=== PATIENT | male | born 1955 | race Caucasian/White ===

== ENCOUNTER → 2017-04-14 10:33 | Outpatient (CLI) | payer BC, SELFPAY ==
--- NOTE | 2017-04-14 10:39 | RAD_ITS ---
STUDY: X-RAY CHEST REASON FOR EXAM: Male, 61 years old. August, persistent cough TECHNIQUE: PA and lateral views of the chest. COMPARISON: PA and lateral chest x-ray February 11, 2016. FINDINGS: There is hyperinflation of the lungs consistent with chronic obstructive lung disease (COPD). No acute infiltrate. There is no demonstrated pleural abnormality. Normal size heart. Normal mediastinum and keisha. Normal visualized pulmonary arteries. Normal visualized aortic arch and descending thoracic aorta. Normal visualized thoracic spine. Normal visualized ribs, clavicles, and shoulders. There is no demonstrated abnormality of the visualized soft tissue structures of the upper abdomen. RAD/Chest PA and Lateral IMPRESSION: Hyperexpanded, consistent with COPD. No acute infiltrate or CHF. Electronically Signed: Butch Lawton MD at 17:59 EST , Service support ,
== END ==
PROVIDERS: Family Provider Internal Medicine; PCP Internal Medicine; Visit Provider Internal Medicine
DX: R09.89 Other specified symptoms and signs involving the circulatory and respiratory systems (principal)
CPT/HCPCS: 71046

== ENCOUNTER → 2017-05-05 11:33 | Outpatient (CLI) | payer BC, SELFPAY ==
--- NOTE | 2017-05-05 11:35 | CT_ITS ---
STUDY: CTA CHEST REASON FOR EXAM: Male, 61 years old. Shortness of breath. Abnormal lung sounds. Hypertension and previous smoking tobacco abuse. Low oxygen sats in office. Check for pulmonary embolus. RADIATION DOSAGE (If Supplied By Facility): CTDIvol = ( 6.91 ) mGy, DLP = ( 307.31 ) mGycm TECHNIQUE: The examination was performed with the intravenous administration of 100 ml of Isovue 370 contrast material. Post-processing of the angiographic images was performed, with multiplanar reformation and 3D reconstruction. Individualized dose optimization techniques were used for this CT. COMPARISON: None available. FINDINGS: Normal enhancement of the main pulmonary artery and right and left pulmonary arteries. Normal enhancement of the bilateral peripheral pulmonary arteries. There is no demonstrated pulmonary embolism. Normal thoracic aorta and visualized great vessels without aortic dissection/transection or aneurysm identified. Normal heart and pericardium. Normal mediastinum. Normal hilar regions noted with right hilar round soft tissue attenuated area seen, likely a lymph node approximate 1.5 x 1.6 cm which is moderately enlarged but does not meet CT criteria for adenopathy. Normal visualized trachea and bronchi. The lungs are well expanded and show minimal right greater than left apical scarring without adjacent bony destruction/erosion identified. Lungs appear hyperexpanded and demonstrate severe predominantly upper lobe centrilobular emphysema within walled cystic changes. Minimal left upper lobe anterior segment groundglass opacity seen in the subpleural region, nonspecific but may represent minimal scarring. Left upper lobe apical posterior possible scar noncalcified pulmonary nodule is seen, approximate 0.6 x 0.8 cm image #227/25 series #2. Minimal subpleural scarring suggested left upper lobe anterior segment image #140/25 series #2. Moderate predominantly bibasal posterior medial peribronchial thickening noted, nonspecific but can be seen in bronchitis. Normal chest wall structures. Severe lower cervical spine and moderate upper to mid thoracic spine degenerative changes are noted as well as mild S-shaped thoracic scoliosis. Normal visualized upper abdomen. No large adrenal identified. CT/CTA Chest W/WO Contrast IMPRESSION: No CTA findings demonstrating a pulmonary embolism or arterial dissection. Severe centrilobular emphysema as described. Tiny left upper lobe apical posterior segment noncalcified pulmonary nodule or scar noted 0.6 x 0.8 cm as described. Please see Fleischner Society guidelines below for recommendation. Moderate predominantly bibasal posterior medial peribronchial thickening, nonspecific but can be seen in bronchitis. Clinical correlation recommended. FLE[employer]CH[employer] SOC[employer]ETY GUIDELINES STATEMENT CT Follow-Up of Small Pulmonary Nodules Nodule size is average of length and width. Nodule size. Low risk patient. Non smoking history. <4mm No follow-up needed (risk of malignancy <1%) 4-6mm Follow up CT at 12 months, if unchanged, no further imaging needed. 6-8mm Initial follow up at 6-12 month, then at 18-24 months if no changes. > 8mm Follow-up CT at 3, 9, and 24 months, dynamic contrast CT, PET and /or biopsy. Nodule size. High risk patients. Smoking history. <4mm Follow-up 12 months: if unchanged, no further follow-up. 4-6mm Initial follow-up at 6-12 months,then at 18-24 months if no change. Electronically Signed: Gucci Francois, at 15:08 EDT Tel , Service support ,
[2017-05-05 11:53] LABS: Bacteria 0 SEEN /hpf (None Seen); Mucous, Urine 0 SEEN /hpf (<or=2+); Squamous Epithelial Cells - UA 0 SEEN /hpf (0-5); White Blood Cells 0 SEEN /hpf (0-5)
[2017-05-05 12:09] LABS: Absolute Lymphocyte Count 1.21 X10^3/ul (0.83-4.51); Absolute Neutrophil Count 6.3 X10^3/uL (2.0-7.7); Basophil# 0.05 X10^3/uL; Basophil% 0.5 % (0-1); Eosinophil# 1.12 X10^3/uL; Eosinophils% 12.1 % (0-5); Hematocrit 44.8 % (40-54); Hemoglobin 15.7 g/dl (13.0-16.5); Lymphocyte # 1.21 X10^3/ul (4.0); Lymphocyte % 13.1 % (19-41); Mean Corpuscular Hgb 32.7 pg (27.0-32.0); Mean Corpuscular Volume 93.3 fL (80-94); Mean Platelet Vol. 9.2 fl (6.2-12.0); Monocyte# 0.57 X10^3/uL; Monocyte% 6.1 % (0-10); Platelet Count 248 K/mm3 (150-450); RBC Distribution Width CV 12.2 % (11.6-14.6); RBC Distribution Width SD 41.4 fl (35.1-43.9); White Blood Count 9.3 K/mm3 (4.4-11.0)
[2017-05-05 12:10] LABS: Color, Urine Yellow (Yellow); Glucose, Dipstick Normal (Normal); Ketone-Dipstick 5 mg/dl (Negative); Leukocyte Esterase-Dipstick Negative /ul (Negative); Nitrite-Dipstick Negative (Negative); Occult Blood-Urine Negative /ul (Negative); Protein-Dipstick Negative (Negative); Urine Bilirubin Dipstick Negative (Negative); Urine Clarity Clear (Clear); Urine Urobilinogen Normal (Normal)
[2017-05-05 12:15] LABS: POSITIVE COUNT NO; POSITIVE DIFFERENTIAL NO; POSITIVE MORPHOLOGY NO
[2017-05-05 12:22] LABS: Red Blood Cells-Urine 0-5 SEEN /hpf (0-5)
[2017-05-05 12:46] LABS: Microalbumin,Random Urine < 5.0 mg/L (NO RANGE EST.)
[2017-05-05 13:00] LABS: ALB/GLOB Ratio 1.3 RATIO (0.9-2.4); AST(SGOT) 25 U/L (15-37); Alanine Aminotransfer ALT/SGPT 31 U/L (16-61); Albumin, Serum 4.4 g/dL (3.2-5.0); Alkaline Phosphatase 78 U/L (45-117); Anion Gap 7 (5-15); BUN 15 mg/dL (7-18); BUN/Creat Ratio 15.5 RATIO (10-20); Calcium,Total 9.1 mg/dL (8.5-10.1); Chloride 96 mmol/L (98-107); Cholesterol 147 mg/dL (200); Creatinine, Serum 0.96 mg/dL (0.70-1.30); EST Glomerular Filtration Rate 84 mL/min (>60); Est Glom Filt Rate - Afr Amer 102 mL/min (>60); Globulin 3.5 g/dL (2.2-4.2); Glucose 104 mg/dL (74-106); High Density Lipoprotein 74 mg/dL; Potassium 4.2 mmol/L (3.5-5.1); Protein, Total 7.9 g/dL (6.4-8.2); Sodium Level 131 mmol/L (136-145); Thyroid Stim Hormone (TSH) 1.55 uIU/mL (0.358-3.74); Triglycerides 68 mg/dL; Very Low Density Lipoprotein 14 mg/dL (5-40)
[2017-05-06 10:42] LABS: Vitamin D,25 Hydroxy 39.7 ng/mL (29.95-100.01)
[2017-05-09 06:48] LABS: Bilirubin, Direct 0.38 mg/dL (0.00-0.30)
== END ==
PROVIDERS: Family Provider Internal Medicine; PCP Internal Medicine; Visit Provider Internal Medicine
DX: R09.89 Other specified symptoms and signs involving the circulatory and respiratory systems (principal); I10 Essential (primary) hypertension; E55.9 Vitamin D deficiency, unspecified; E78.5 Hyperlipidemia, unspecified; R73.02 Impaired glucose tolerance (oral); R17 Unspecified jaundice
CPT/HCPCS: 36415; 71275; 80053; 80061; 81001; 82043; 82248; 82306; 82570; 84443; 85025; Q9967

== ENCOUNTER → 2017-05-26 06:52 | Outpatient (CLI) | payer BC, SELFPAY ==
--- NOTE | 2017-05-26 13:50 | PFTCOMP_ITS ---
COMPLETE PULMONARY FUNCTION TEST INTERPRETATION Brief HPI: Patient is a 61 year old male, currently under the care of myself, who presents to [facility] for complete pulmonary function tests secondary to diagnosis of COPD. Respiratory therapist reports good effort and reproducible results. Interpretation: Forced expiration spirometry shows a mild large airways obstructive ventilatory defect with an FEV1 of 103% predicted. There is no significant bronchodilator response by ATS criteria. Spirograms are of good quality and plateau slowly, indicating slowly emptying areas of the lungs. The respiratory flow volume loop shows decreased expiratory flow rates at high lung volumes consistent with small airways obstruction. Lung volumes by body plethysmography show an elevated total lung capacity at 8.78 L, 137% predicted. All other lung volumes are increased symmetrically. Diffusion capacity by carbon monoxide is normal at 108% predicted. The airway resistance is elevated. Compared to previous pulmonary function tests from 01/02/2013, there has been a significant worsening air-trapping. Impression: Irreversible mild large airways obstructive ventilatory defect resulting in hyperinflation and consistent with chronic bronchitis.
== END ==
PROVIDERS: Family Provider Internal Medicine; PCP Internal Medicine; Visit Provider Internal Medicine Critical Care Medicine
DX: J44.1 Chronic obstructive pulmonary disease with (acute) exacerbation (principal)
CPT/HCPCS: 94060; 94726; 94729

== ENCOUNTER → 2017-08-15 07:58 | Outpatient (CLI) | payer BC, SELFPAY ==
--- NOTE | 2017-08-15 07:59 | CT_ITS ---
STUDY: CT CHEST WITHOUT CONTRAST REASON FOR EXAM: Male, 62 years old. Lung nodule for 3 month follow-up. RADIATION DOSAGE (If Supplied By Facility): CTDIvol = ( 8.70 ) mGy, DLP = ( 354.55 ) mGycm TECHNIQUE: Transaxial imaging was performed without the administration of intravenous contrast material. Individualized dose optimization techniques were used for this CT. COMPARISON: May 05, 2017. September 24, 2013. FINDINGS: Centrilobular emphysematous changes noted previously. No focal infiltrates or effusions. No pneumothorax. Previously noted small left apical lung nodule versus scar in no longer present. Normal heart and pericardium. Normal mediastinum. Normal hilar regions. Normal unenhanced pulmonary arteries. Normal aorta arch and descending thoracic aorta. Normal osseous structures. There is no demonstrated abnormality of the visualized upper abdomen. CT/Chest without Contrast IMPRESSION: No acute findings in the chest. COPD. Previously noted small left apical lung nodule or focal area of scar is no longer present. Electronically Signed: José Luis Krishnan MD at 5:11 EDT , Service support ,
== END ==
PROVIDERS: Family Provider Internal Medicine; PCP Internal Medicine; Visit Provider Internal Medicine Critical Care Medicine
DX: R91.1 Solitary pulmonary nodule (principal)
CPT/HCPCS: 71250

== ENCOUNTER → 2018-02-08 09:51 | Outpatient (CLI) | payer BC, SELFPAY ==
--- NOTE | 2018-02-08 09:54 | RAD_ITS ---
STUDY: X-RAY CHEST REASON FOR EXAM: Male, 62 years old. Acute exacerbation of asthma. Shortness of breath. TECHNIQUE: PA and lateral views of the chest. COMPARISON: Comparison is made with prior study dated April 14, 2017. FINDINGS: Hyperinflation. Scattered calcified granulomas. No infiltration is seen. There is no demonstrated pleural abnormality. Normal size heart. Normal mediastinum and keisha. Normal visualized pulmonary arteries. Normal visualized aortic arch and descending thoracic aorta. Normal visualized thoracic spine. Normal visualized ribs, clavicles, and shoulders. There is no demonstrated abnormality of the visualized soft tissue structures of the upper abdomen. RAD/Chest PA and Lateral IMPRESSION: Hyperinflation. No acute abnormality is seen. Electronically Signed: Darrick Dueñas MD at 10:30 EST Tel [phone], Service support ,
== END ==
PROVIDERS: Family Provider Internal Medicine; PCP Internal Medicine; Referring Provider Nurse Practitioner; Visit Provider Nurse Practitioner
DX: J45.901 Unspecified asthma with (acute) exacerbation (principal); R09.89 Other specified symptoms and signs involving the circulatory and respiratory systems
CPT/HCPCS: 71046; 87807

== ENCOUNTER 2018-03-13 11:29 | Emergency (ER) | payer BC, SELFPAY ==
[2018-03-13 11:31] VITALS: BP 123/84; PULSE 95; RESP 17; TEMP 36.7; O2SAT 95; BMI 22.0
--- NOTE | 2018-03-13 13:24 | EKG12_ITS ---
Test Reason : SOB Blood Pressure : / mmHG Vent. Rate : 109 BPM Atrial Rate : 109 BPM P-R Int : 158 ms QRS Dur : 092 ms QT Int : 330 ms P-R-T Axes : 085 089 077 degrees QTc Int : 444 ms Sinus tachycardia Right atrial enlargement Cannot rule out Anterior infarct , age undetermined Abnormal ECG Confirmed by CHAS BERGER, MONET ([id number]), social media editor WAGNER GRAVES ([id number]) on 03/15/2018 1:56:14 PM Referred By: JAZMYN Confirmed By:MONET DOHERTY MD
--- NOTE | 2018-03-13 13:36 | NURSING ---
NO OLD EKGS
[2018-03-13 14:49] LABS: Absolute Lymphocyte Count 0.82 X10^3/ul (0.83-4.51); Absolute Neutrophil Count 5.8 X10^3/uL (2.0-7.7); Basophil# 0.03 X10^3/uL; Basophil% 0.4 % (0-1); Eosinophil# 0.55 X10^3/uL; Eosinophils% 6.9 % (0-5); Hematocrit 43.6 % (40-54); Hemoglobin 14.9 g/dl (13.0-16.5); Lymphocyte # 0.82 X10^3/ul (4.0); Lymphocyte % 10.3 % (19-41); Mean Corp Hgb Conc 34.2 g/gl (32-36); Mean Corpuscular Hgb 32.2 pg (27.0-32.0); Mean Corpuscular Volume 94.2 fL (80-94); Monocyte# 0.74 X10^3/uL; Monocyte% 9.3 % (0-10); Neutrophil # 5.77 X10^3/uL (2.7-7.7); Neutrophil % 72.8 % (47-70); POSITIVE COUNT NO; POSITIVE DIFFERENTIAL NO; POSITIVE MORPHOLOGY NO; Platelet Count 242 K/mm3 (150-450); RBC Distribution Width CV 12.1 % (11.6-14.6); RBC Distribution Width SD 41.1 fl (35.1-43.9); Red Blood Count 4.63 M/mm3 (4.6-6.2); White Blood Count 7.9 K/mm3 (4.4-11.0)
--- NOTE | 2018-03-13 14:50 | RAD_ITS ---
STUDY: X-RAY CHEST REASON FOR EXAM: Male, 62 years old. Dyspnea/shortness of breath. TECHNIQUE: PA and lateral views of the chest. COMPARISON: Comparison is made with prior study dated February 08, 2018. FINDINGS: EKG electrodes are seen. Hyperinflation. Scattered calcified granulomas. There is no demonstrated pleural abnormality. Normal size heart. Normal mediastinum and keisha. Normal visualized pulmonary arteries. Normal visualized aortic arch and descending thoracic aorta. There is demineralization of the osseous structures. Normal visualized ribs, clavicles, and shoulders. There is no demonstrated abnormality of the visualized soft tissue structures of the upper abdomen. RAD/Chest PA and Lateral IMPRESSION: Hyperinflation. No acute abnormality is seen. Electronically Signed: Darrick Dueñas MD at 15:43 EST , Service support ,
[2018-03-13 15:00] LABS: Anion Gap 12 (5-15); BUN 22 mg/dL (7-18); BUN/Creat Ratio 17.6 RATIO (10-20); Calcium,Total 9.2 mg/dL (8.5-10.1); Chloride 97 mmol/L (98-107); Creatinine, Serum 1.25 mg/dL (0.70-1.30); EST Glomerular Filtration Rate 62 mL/min (>60); Est Glom Filt Rate - Afr Amer 75 mL/min (>60); Estimated Creatinine Clearance 59.43 ml/min; Glucose 181 mg/dL (74-106); Potassium 3.8 mmol/L (3.5-5.1); Sodium Level 135 mmol/L (136-145)
[2018-03-13] MEDS: MethylPREDNISolone 125 MG/2 ML Vial IV (15:13)
[2018-03-13 15:15] VITALS: BP 104/84; PULSE 86; RESP 15; RESP 17; O2SAT 95; O2SAT 96
[2018-03-13] MEDS: Ipratropium/Albuterol Sulfate 3 ML AMPUL.NEB INHALATION (15:39)
[2018-03-13] MEDS: Albuterol 2.5 MG/3 ML VIAL.NEB. INHALATION ×2 (15:39)
[2018-03-13 15:40] VITALS: PULSE 83; RESP 20
[2018-03-13 15:56] VITALS: PULSE 91; RESP 16; TEMP 37.3; O2SAT 95
--- NOTE | 2018-03-13 16:49 | ED.DCSUM_ITS ---
- ER Visit Summary Date of Service: 03/13/18 Chief Complaint: Short of breath History of Present Illness: The patient is a 62 M with a history of COPD and asthma. He is not on home oxygen. Patient reports going to his PCPs office 3 times in the past 5 weeks with shortness of breath and cough. His symptoms improved with steroids but then returned once the taper ends. He states this time of year with a cold weather is usually his worst. He has been using his albuterol more than normal. He does take Qvar regularly as well. Patient was seen by his PCP this morning. His O2 sat went from 90-92% after an aerosol. Because he had been in the office 3 times this year for the same he was sent to the ER. Patient denies chest pain. He does not have fever or chills. Physical Examination: Vital signs unremarkable. Pulse ox is 95% on arrival. Patient sitting upright in bed no acute distress. He speaking full sentences. Head neck examination normal. Heart is regular rate and rhythm. Lungs sounds are diminished bilaterally, but no wheezes or rhonchi. Abdomen is soft nontender. Test Results: Chest x-ray shows hyperinflation with no acute abnormality. CBC and chemistry studies significant only for glucose of 181. Emergency Department Course and Treatment: Patient was given IV Solu-Medrol along with a DuoNeb treatment followed by 2 albuterol treatments. On repeat evaluation he does feel somewhat improved. He does have improved air movement on auscultation. Here he has prednisone waiting for him at the pharmacy. We will also cover him with doxycycline, first dose given here. He is to follow-up with Dr. Carson who he is known to but has not followed up over the past month. At discharge pulse ox is 98% on room air. Treatment Plan: [] Disposition: Discharge Impression: COPD exacerbation This note was generated with [employer] dictation software. It may contain incorrect words, spelling, and punctuation that were not noted in review of the chart prior to signing ED Disposition - Plan for ED Patient: Disposition: Home or Assisted Living Instructions: ED COPD Flare Prescriptions: Doxycycline 100 mg PO BID #20 capsule Referrals: Nikita Carson MD [STAFF PHYSICIAN] - As soon as possible Rose Mary Padron DO [Primary Care Provider] -
--- NOTE | 2018-03-13 16:49 | ED.DEP ---
ED Disposition - Plan for ED Patient: Disposition: Home or Assisted Living Instructions: ED COPD Flare Prescriptions: Doxycycline 100 mg PO BID #20 capsule Referrals: Rose Mary Padron DO [Primary Care Provider] - Nikita Carson MD [STAFF PHYSICIAN] - As soon as possible
[2018-03-13] MEDS: Doxycycline 100 MG CAPSULE PO (17:05)
[2018-03-13 17:07] VITALS: BP 102/83; PULSE 95; RESP 14; O2SAT 98
== END 2018-03-13 17:08 | disposition home or self-care (01) ==
PROVIDERS: Emergency Medicine; Emergency Provider Emergency Medicine; Family Provider Internal Medicine; PCP Internal Medicine
DX: J44.1 Chronic obstructive pulmonary disease with (acute) exacerbation (principal); I10 Essential (primary) hypertension; Z79.899 Other long term (current) drug therapy; Z87.891 Personal history of nicotine dependence
CPT/HCPCS: 71046; 80048; 85025; 93005; 94640; 94760; 96374; 99283; A4216

== ENCOUNTER → 2018-11-20 15:54 | Outpatient (CLI) | payer BC, SELFPAY ==
[2018-08-23 09:19] VITALS: BMI 22.0
--- NOTE | 2018-11-20 11:25 | COLBX_PTH ---
PATIENT: YANET LONGO LOC: [facility] U#:[id number] AGE/SX: 69/M ROOM: RE11/20/[address]: Dr. Sj Sims MD : [id number] BED: DIS: SPEC #: [id number] RECD: 11/20/18 15:30 STATUS: JACQUELINE REDeena #: [id number] EV: 11/20/18 11:[address]: Sj Sims DEPT: SURGICAL PATHOLOGY RECD BY: Boby Vaca ENTERED: 11/21/18 09:56 SP TYPE: COLON BX OT DR: Dr. Rose Mary Padron, [facility] Tissues: Sigmoid colon biopsy Procedures: Surgery Specimen Level IV HEADER OPERATION: Colonoscopy with biopsy PRE-OP DIAGNOSIS: Screening / polyp TISSUE SUBMITTED: Polyp - proximal sigmoid MICROSCOPIC DIAGNOSIS Proximal sigmoid colon polyp, biopsy: Hyperplastic polyp. AM:feliberto 11/22/18 MICROSCOPIC DESCRIPTION Slides are reviewed. GROSS DESCRIPTION Received is one container labeled with the patient's name and not further designated. The specimen consists of multiple irregular fragments of light hamlin soft tissue including fecal debris that in aggregate measure 5 x 3 x 0.1 cm. The specimen is totally submitted in one cassette. / SJ:feliberto 11/21/18 TC:1 CPT: 94647
== END ==
PROVIDERS: Family Provider Internal Medicine; PCP Internal Medicine; Referring Provider Internal Medicine Gastroenterology; Visit Provider Internal Medicine Gastroenterology
DX: Z12.11 Encounter for screening for malignant neoplasm of colon (principal); K63.5 Polyp of colon
CPT/HCPCS: 88305

== ENCOUNTER → 2019-08-13 13:00 | Outpatient (CLI) | payer BC, SELFPAY ==
[2018-08-23 09:19] VITALS: BMI 22.0
--- NOTE | 2019-08-13 14:06 | PFTCOMP ---
COMPLETE PULMONARY FUNCTION TEST INTERPRETATION Brief HPI: Patient is a 64 year old male, currently under the care of myself, who presents to [facility] for complete pulmonary function tests secondary to diagnosis of asthma. Respiratory therapist reports good effort and reproducible results. Interpretation: Forced expiration spirometry shows no large airways obstructive ventilatory defect with an FEV1 of 120% predicted. There is no significant bronchodilator response by strict ATS criteria. Spirograms are of good quality and plateau slowly, indicating slowly emptying areas of the lungs. The respiratory flow volume loop shows decreased expiratory flow rates at high lung volumes consistent with small airways obstruction. Lung volumes by body plethysmography show an elevated total lung capacity at 7.56 L, 119% predicted. All other lung volumes are within normal limits. Diffusion capacity by carbon monoxide is normal at 115% predicted. The airway resistance is normal. Compared to previous pulmonary function tests from 05/26/2017, there is been a significant improvement in FEV1 and air-trapping with hyperinflation. Impression: Normal pulmonary function study with improvement compared to PFT in 2018
== END ==
PROVIDERS: PCP Internal Medicine; Referring Provider Internal Medicine Critical Care Medicine; Visit Provider Internal Medicine Critical Care Medicine
DX: J45.40 Moderate persistent asthma, uncomplicated (principal)
CPT/HCPCS: 94060; 94726; 94729

== ENCOUNTER → 2024-12-10 | Outpatient (CLI) | payer MEDICARE, SELFPAY ==
[2024-12-10 09:38] LABS: Mucous, Urine 0 SEEN /hpf (<or=2+); Red Blood Cells-Urine 0 SEEN /hpf (0-5); Squamous Epithelial Cells - UA 0 SEEN /hpf (0-5)
[2024-12-10 12:39] LABS: Hematocrit 40.8 % (40-54); Hemoglobin 13.5 g/dL (13.0-16.5); Immature Granulocytes Count 0.120 X10^3/uL (0.0-0.0); Mean Corp Hgb Conc 33.1 g/dL (32-36); Mean Corpuscular Volume 93.6 fL (80-94); Mean Platelet Vol. 10.0 fl (6.2-12.0); NRBC Flagged by Analyzer 0 % (0-5); Platelet Count 249 K/mm3 (150-450); RBC Distribution Width CV 12.5 % (11.6-14.6); RBC Distribution Width SD 43.0 fl (35.1-43.9); Red Blood Count 4.36 M/mm3 (4.6-6.2); White Blood Count 6.1 K/mm3 (4.4-11.0)
[2024-12-10 12:40] LABS: Color, Urine Yellow (Yellow); Glucose, Dipstick Normal (Normal); Ketone-Dipstick Negative (Negative); Leukocyte Esterase-Dipstick Negative /ul (Negative); Nitrite-Dipstick Negative (Negative); Occult Blood-Urine Negative /ul (Negative); Protein-Dipstick 30 mg/dl (Negative); Specific Gravity, Urine 1.015 (1.002-1.030); Urine Bilirubin Dipstick Negative (Negative)
[2024-12-10 12:59] LABS: Creatinine, Urine (random) 160.00 mg/dL (39.00-259.00); Microalbumin,Random Urine < 12.0 mg/L (<20 mg/L)
[2024-12-10 13:00] LABS: AST(SGOT) 28 U/L (<=37); Alanine Aminotransfer ALT/SGPT 26 U/L (<=46); Albumin, Serum 4.2 g/dL (3.4-4.8); Alkaline Phosphatase 62 U/L (40-129); Anion Gap 9 (5-15); BUN 23 mg/dL (4-19); BUN/Creat Ratio 24.8 RATIO (10-20); Calcium,Total 9.4 mg/dL (7.6-11.0); Carbon Dioxide 26.9 mmol/L (21.0-32.0); Chloride 101 mmol/L (98-108); Cholesterol 151 mg/dL (<=200); Globulin 2.6 g/dL (2.2-4.2); Glucose 100 mg/dL (70-99); Low Density Lipoprotein Calc. 64 mg/dL; Potassium 4.4 mmol/L (3.3-5.1); Triglycerides 68 mg/dL; Very Low Density Lipoprotein 14 mg/dL (5-40); cholesterol:hdl ratio screen 2.06
== END | disposition home or self-care (01) ==
LOC: MTLAB 09:36
PROVIDERS: PCP Internal Medicine; Referring Provider Internal Medicine; Visit Provider Internal Medicine
DX: E78.5 Hyperlipidemia, unspecified (principal); R73.09 Other abnormal glucose
CPT/HCPCS: 36415; 80053; 80061; 81001; 82043; 82570; 84443; 85025

== ENCOUNTER → 2024-12-17 | Outpatient (CLI) | payer MEDICARE, SELFPAY | END | disposition home or self-care (01) | LOC: CIMLAB 10:06 | PROVIDERS: PCP Internal Medicine; Referring Provider Internal Medicine; Visit Provider Internal Medicine | DX: R73.09 Other abnormal glucose (principal) | CPT/HCPCS: 36415; 83036 ==

== ENCOUNTER → 2024-12-19 | Outpatient (CLI) | payer MEDICARE, SELFPAY ==
--- NOTE | 2024-12-19 06:28 | ECHOD_ITS ---
Reason For Study Reason For Study: Abnormal Calcium Score Procedure This was a 2D Doppler, Color Flow transthoracic echocardiogram. Exam performed in department. Left Ventricle Normal LV size. Mild concentric left ventricular hypertrophy. The left ventricular ejection fraction is 65 %. Stage 1 diastolic dysfunction. Right Ventricle Normal right ventricle. Atria There is mild biatrial dilatation. Mitral Valve Mild (1+) mitral valve insufficiency. Tricuspid Valve Mild (1+) tricuspid valve insufficiency. Unable to estimate RV systolic pressure due to insufficient tricuspid regurgitant envelope. Aortic Valve Trisinus/trileaflet aortic valve. Pulmonic Valve The pulmonic valve is not well visualized. Great Vessels Normal sized aortic root. Pericardium/Pleural No pericardial effusion. MMode/2D Measurements & Calculations LVIDd: 4.4 cm IVSd: 1.2 cm Ao root diam: 3.6 cm LVIDs: 2.6 cm LVPWd: 1.2 cm LA dimension: 4.4 cm RVDd: 3.3 cm FS: 41.0 % LAV(MOD-bp): 52.8 ml LVAd ap4: 27.2 cm2 SV(MOD-sp4): 52.6 ml LAV(MOD-bp) Indexed: 28.8 ml/m2 LVLd ap4: 7.5 cm SI(MOD-sp4): 28.7 ml/m2 LAV(MOD-sp2): 55.3 ml EDV(MOD-sp4): 80.0 ml LAV(MOD-sp4): 48.8 ml EDV(sp4-el): 83.8 ml LVAs ap4: 14.8 cm2 LVLs ap4: 6.7 cm ESV(MOD-sp4): 27.4 ml ESV(sp4-el): 27.7 ml EF(MOD-sp4): 65.7 % EF(sp4-el): 66.9 % SV(sp4-el): 56.1 ml LA A4 area: 17.5 cm2 LA dimension(2D): 4.1 cm RA A4 area: 16.7 cm2 TAPSE: 2.2 cm Time Measurements MV dec time: 0.26 sec Doppler Measurements & Calculations MV E max aime: 52.4 cm/sec Lat Peak E' Aime: 10.8 cm/sec Med Peak E' Aime: 7.8 cm/sec MV A max aime: 69.5 cm/sec E/E' lat: 4.9 E/E' med: 6.7 MV E/A: 0.75 MV V2 max: 83.3 cm/sec MV P1/2t max aime: 72.0 cm/sec Ao V2 max: 127.6 cm/sec MV max P.8 mmHg MV P1/2t: 94.7 msec Ao max P.5 mmHg MV V2 mean: 44.7 cm/sec Ao V2 mean: 85.4 cm/sec MV mean P.96 mmHg MV dec slope: 222.9 cm/sec2 Ao mean P.4 mmHg MV V2 VTI: 24.4 cm MVA(P1/2t): 2.3 cm2 Ao V2 VTI: 28.5 cm AV (velocity ratio): 0.80 LV V1 max: 98.3 cm/sec PA V2 max: 99.1 cm/sec LV V1 max P.9 mmHg PA V2 mean: 65.6 cm/sec LV V1 mean P.0 mmHg LV V1 mean: 65.1 cm/sec LV V1 VTI: 22.7 cm ECHO/Echo Complete Interpretation Summary Mild concentric left ventricular hypertrophy. The left ventricular ejection fraction is 65 %. Stage 1 diastolic dysfunction. There is mild biatrial dilatation. Mild (1+) mitral valve insufficiency. Mild (1+) tricuspid valve insufficiency. Ordering Physician: Janet Carty Referring Physician: Janet Carty Performed By: Bakari Mcgarry RCS
--- NOTE | 2024-12-19 12:10 | STRESSREP_ITS ---
Stress Test Report Date: 12/19/2024 Procedure: Exercise tolerance test/imaging study Indications: Coronary artery disease Consent: Per the patient Procedure: The patient exercised on a Nikita protocol for 5 minutes 59 seconds achieving a peak heart rate of 142 bpm (93% predicted maximal heart rate) with a peak blood pressure 152/80 mmHg and a peak MET capacity of 7.0 METs. The baseline ECG demonstrated sinus rhythm. The peak exercise ECG showed sinus tachycardia with no ischemic changes. There were no cardiac dysrhythmias pretest, during exercise, or recovery. The functional capacity was considered average for age. There was no complaint of chest discomfort during exercise or recovery. The examination was discontinued secondary to target heart rate being achieved. The patient was injected with 11.5 mCi of technetium 99m Cardiolite and subsequently rest SPECT Cardiolite nuclear imaging was obtained in the horizontal long, vertical long, and short axis views. Post-exercise, the patient was injected with 33.7 mCi of technetium 99m Cardiolite and subsequently stress SPECT Cardiolite nuclear imaging was obtained in the horizontal long, vertical long, and short axis views. A gated Cardiolite study at peak stress was obtained. Rest and stress SPECT Cardiolite nuclear imaging status post realignment, normalization, and attenuation correction, demonstrates the appearance of relative uniform tracer uptake and myocardial perfusion appearing within normal limits. There is end systolic thickening and brightening. The gated Cardiolite study demonstrates myocardial thickening and inward wall motion. The reported LVEF is 66%. Impression: 1. Technically adequate (percent predicted maximal heart rate greater than 85%) exercise tolerance test 2. Peak exercise ECG with no ischemic changes 3. There were no cardiac dysrhythmias pretest, during exercise, or recovery 4. Rest and stress SPECT Cardiolite nuclear imaging demonstrate relative uniform tracer uptake and myocardial perfusion appearing within normal limits. 5. The gated Cardiolite study reports an LVEF of 66%. This note was generated with [employer] software. It may contain incorrect words, spelling, and punctuation that were not noted in checking the note before signing.
== END | disposition home or self-care (01) ==
LOC: CVS 06:27
PROVIDERS: PCP Internal Medicine; Referring Provider Internal Medicine Cardiovascular Disease; Visit Provider Internal Medicine Cardiovascular Disease
DX: I25.10 Atherosclerotic heart disease of native coronary artery without angina pectoris (principal); I10 Essential (primary) hypertension; E78.5 Hyperlipidemia, unspecified; J45.40 Moderate persistent asthma, uncomplicated
CPT/HCPCS: 78452; 93017; 93306; A9500; A4216